=== PATIENT | male | born 1945 | race Caucasian/White ===

== ENCOUNTER 2023-05-12 10:37 | Outpatient (AMB) | payer MEDICARE, SELFPAY ==
--- NOTE | 2023-05-12 10:38 | A.OFFVIS_ITS ---
Intake Vital Signs 05/12/23 10:43 Weight 193 lb BP 127/76 Blood Pressure Location Rt brachial Position Sitting Pulse 55 Intake Visit Reasons: Inguinal hernia Intake Note: This patient was self-referred and presents for an assessment for left inguinal hernia. Patient c/o; reports left groin bulge, reports occasional pain/discomfort. Certified Residential Medication Aide Required: No Accompanied by: Self / Same As Patient Allergies sulfamethoxazole [From Bactrim] Allergy (Verified 05/12/23 10:44) Unknown trimethoprim [From Bactrim] Allergy (Verified 05/12/23 10:44) Unknown Medication List - Last Reconciled 05/12/23 by Buddy Gael MD alfuzosin ER 10 mg PO DAILY apixaban (Eliquis) 5 mg PO BID diltiazem HCl 120 mg PO DAILY flecainide 100 mg PO DAILY pravastatin 20 mg PO DAILY HPI Inguinal hernia HPI Details 77-year-old male referred for a left ing uinal hernia. He had noticed this reducible mass on his left groin for about 1-2 months now. He says that this is more prominent when he is active. 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 He describes some discomfort. He had hernia repair on the right side about 15 months ago. He has history of atrial fibrillation but had ablation about 2 years ago and he says he had been in sinus since then. He however says that he still remains on anticoagulation with Eliquis. 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 FORMERLY [facility], [facility] Medical History (Updated 05/12/23 @ 11:15 by Buddy Gale MD) Left inguinal hernia History of atrial fibrillation Surgical History (Updated 05/12/23 @ 11:14 by Buddy Gale MD) History of radiofrequency ablation (RFA) for complex left atrial arrhythmia Hx of surgical procedure History of hernia surgery Family History Father Prostate cancer Social History Alcohol intake: current Patient Tobacco Use Status: Never used Tobacco Review of Systems Const Denies chills and Denies fever(s) Card Denies chest pain, Denies dyspnea and Denies dyspnea on exertion Resp Denies cough, Denies dyspnea and Denies dyspnea on exertion GI Denies hematochezia and Denies change in bowel habits Denies hematuria and Denies difficulty urinating Musc Denies back pain and Denies limited range of motion Neuro Denies focal weakness and Denies convulsions Psych Denies depression and Denies mood swings Physical Exam Vital Signs: Last Vital Signs Pulse 55 05/12/23 10:43 BP 127/76 05/12/23 10:43 Const General: comfortable and no acute distress Orientation/consciousness: patient oriented x3 Neck Neck: Yes no lymphadenopathy Resp Auscultation: clear to auscultation bilaterally Cardio Rhythm: regular rhythm GI Other: Left inguinal hernia, easily reducible, more prominent with Valsalva Palpation (GI): Soft to palpation, nontender and no guarding Neuro General: patient oriented x3 Assessment & Plan Assessment & Plan (1) Left inguinal hernia: Code(s): K40.90 - Unilateral inguinal hernia, without obstruction or gangrene, not specified as recurrent Plan: He has a left inguinal hernia as described above. He wants this repaired. I had a long discussion with him about the technique of repair of this left inguinal hernia with mesh. I reviewed the risks including but not limited to bleeding, infections, injury to the vas deferens and testicle, recurrence, blood clots, stroke, as well as the benefits and alternatives. He wants to proceed. I also explained to him what to expect postoperatively. He remains on anticoagulation with Eliquis despite having ablation 2 years ago. He is to hold his Eliquis for 48 hours prior to the procedure. Coding Level of Care Code New Pt Level 3 (79993) Diagnoses Left inguinal hernia K40.90
[2023-05-12 10:43] VITALS: BP 127/76; PULSE 55
== END 2023-05-12 11:11 | disposition home or self-care (01) ==
PROVIDERS: PCP Pediatrics; Visit Provider Surgery
DX: K40.90 Unilateral inguinal hernia, without obstruction or gangrene, not specified as recurrent (principal)
CPT/HCPCS: 99203

== ENCOUNTER → 2023-05-12 10:37 | Outpatient (BNVA) | payer MEDICARE, SELFPAY | PROVIDERS: PCP Pediatrics; Visit Provider Surgery ==

== ENCOUNTER 2023-07-12 06:29 | Day surgery (SDC) | payer MEDICARE, SELFPAY ==
[2023-07-08 10:34] VITALS: BMI 24.1
[2023-07-12] VITALS (7 sets, daily range): BP systolic 109–128; BP diastolic 61–73; PULSE 56–65; RESP 16–18; TEMP 36.1–36.7; O2SAT 95–98
[2023-07-12] MEDS: Lactated Ringers 1,000 ML 100 ML IVCONT (06:47)
--- NOTE | 2023-07-12 08:06 | MHC.SHP ---
Pre-Procedural Eval Section A Date of Service: 07/12/23 Section B Chief Complaint: Unilateral inguinal hernia, without obstruction Details of Present Illness: has had a reducible left groin mass consistent with hernia Relevant Family History (Specify if Yes): No Relevant Social History: None Present Medications: see Short Stay Collaborative assessment Medical History: Significant History ( history of arrhythmia/ atrial fibrillation, underwent ablation in the past) History of Previous Operations: Relevant previous surgery/procedure and date(s) Allergies: Allergies Allergy/AdvReac Type Severity Reaction Status Date / Time sulfamethoxazole Allergy Unknown Verified 07/12/23 06:31 [From Bactrim] trimethoprim [From Bactrim] Allergy Unknown Verified 07/12/23 06:31 Review of Systems Sugical H&P ROS: Negative: Constitution, Cardiovascular, Respiratory, Neurological, Psychiatric, Hem-Onc, Allergic/Immunologic, Gastrointestinal, Genitourinary, Musculoskeletal, Integumentary, Endocrine and Eyes/Ears/Nose/Throat Exam Surgical H&P Exam: Normal: HEENT, Normal: Heart, Normal: Lungs, Normal: Extremities, Normal: Skin and Normal: Neurological and Significant Findings: Abdomen ( reducible left inguinal hernia) Plan Diagnosis/Plan: Unchanged I have reviewed the history and physical and performed a pertinent physical examination on my patient. No changes have occurred unless specified. Time Spent With Patient Time: Total time managing care of this patient today ____ minutes.
--- NOTE | 2023-07-12 08:20 | P.CONAN_ITS ---
Documented by User: Arcelia Tejeda NP 07/11/23 10:39 HPI - Anesthesia Eval Consult details Narrative: 77yo M for Left Hernia Repair Inguinal with mesh Afib with eliquis, s/p RFA Follows [facility] cardiology. Last office visit 01/2023 [facility] Active Problems Active Problems: All Active Problems (Updated 07/08/23 @ 10:34 by Jana Sumner RN) Left inguinal hernia (Acute) History of radiofrequency ablation (RFA) for complex left atrial arrhythmia (Acute) History of atrial fibrillation (Acute) Past Medical History Medical History Elevated cholesterol Left inguinal hernia History of atrial fibrillation Family History Family History Father Prostate cancer Surgical History Surgical History History of radiofrequency ablation (RFA) for complex left atrial arrhythmia History of hernia surgery Social History Social History Alcohol intake: current Patient Tobacco Use Status: Never used Tobacco Substance Use Frequency: Daily Are you DNR?: No Advance Directives: No Advance Directives Information Provided: Yes Nutrition Risks: No Nutritional Risk Meds Allergies Allergy/AdvReac Type Severity Reaction Status Date / Time sulfamethoxazole Allergy Unknown Verified 07/12/23 06:31 [From Bactrim] trimethoprim [From Bactrim] Allergy Unknown Verified 07/12/23 06:31 Home Medications Medication Instructions Recorded Confirmed Last Taken Type alfuzosin 10 mg tablet,extended 10 mg PO DAILY 05/12/23 07/08/23 Unknown History release 24 hr apixaban 5 mg tablet (Eliquis) 5 mg PO BID 05/12/23 07/08/23 Unknown History diltiazem HCl 120 mg 120 mg PO DAILY 05/12/23 07/08/23 07/12/23 History capsule,extended release 24 hr flecainide 100 mg tablet 100 mg PO DAILY 05/12/23 07/08/23 07/12/23 History pravastatin 20 mg tablet 20 mg PO DAILY 05/12/23 07/08/23 Unknown History Exam Exam Date and Time: July 11, 2023 0912 Height,Weight and Vital Signs: Height 6 ft 3 in Weight 87.543 kg Narrative Narrative: EKG 01/2023 SB @ 56 ECHO 06/2020 LA mildly dilated RS mildly dilated RV mildly dilated RV systolic function is low normal LV size is nml LV wall thickness is nml LV sysltolic function is low nml LVEF 50-55% No regional WMA Grade 1, mild DD with impaired LV relaxation Pt was in SB during study Negative Exercise stress 06/2020 Assessment and Plan Assessment Anesthesia Assessment: Chart Reviewed Documented by User: Tamra Matt DO 07/12/23 08:24 HPI - Anesthesia Eval Consult details Narrative: 77yo M for Left Hernia Repair Inguinal with mesh Afib with eliquis, s/p RFA. Follows [facility] cardiology. Last office visit 01/2023. Marijuana and ETOH use. [facility] Past Medical History Medical History Elevated cholesterol Left inguinal hernia History of atrial fibrillation Family History Family History Father Prostate cancer Family history of problems with anesthesia: No Surgical History Surgical History History of radiofrequency ablation (RFA) for complex left atrial arrhythmia History of hernia surgery History of Problems with Anesthesia: No Social History Social History Alcohol intake: current Patient Tobacco Use Status: Never used Tobacco Substance Use Frequency: Daily Are you DNR?: No Advance Directives: No Advance Directives Information Provided: Yes Nutrition Risks: No Nutritional Risk Meds Allergies Allergy/AdvReac Type Severity Reaction Status Date / Time sulfamethoxazole Allergy Unknown Verified 07/12/23 06:31 [From Bactrim] trimethoprim [From Bactrim] Allergy Unknown Verified 07/12/23 06:31 Home Medications Medication Instructions Recorded Confirmed Last Taken Type alfuzosin 10 mg tablet,extended 10 mg PO DAILY 05/12/23 07/08/23 Unknown History release 24 hr apixaban 5 mg tablet (Eliquis) 5 mg PO BID 05/12/23 07/08/23 Unknown History diltiazem HCl 120 mg 120 mg PO DAILY 05/12/23 07/08/23 07/12/23 History capsule,extended release 24 hr flecainide 100 mg tablet 100 mg PO DAILY 05/12/23 07/08/23 07/12/23 History pravastatin 20 mg tablet 20 mg PO DAILY 05/12/23 07/08/23 Unknown History Exam Exam Date and Time: July 12, 2023 0820 Height,Weight and Vital Signs: Height 6 ft 3 in Weight 87.543 kg Vital Signs Temperature 98.0 F 07/12/23 06:56 Pulse Rate 56 07/12/23 06:56 Respiratory Rate 18 07/12/23 06:56 Blood Pressure 128/73 07/12/23 06:56 Pulse Oximetry 98 07/12/23 06:56 Oxygen Delivery Method Room Air 07/12/23 06:56 Temperature 98.0 F 07/12/23 06:56 Pulse Rate 56 07/12/23 06:56 Respiratory Rate 18 07/12/23 06:56 Blood Pressure 128/73 07/12/23 06:56 Pulse Oximetry 98 07/12/23 06:56 Oxygen Delivery Method Room Air 07/12/23 06:56 Airway Mallampati Class: II TM Dist: >3cm Neck ROM: Full Loose/Missing/Broken Teeth: No Heart: S1S2 Lungs: CTAB Assessment and Plan Assessment Anesthesia Assessment: Anesthesia Plan Discussed and Chart Reviewed Final Anesthetic Review Family History of Problems with Anesthesia: No History of Problems with Anesthesia: No NPO: Yes ASA Class: II Final Preanesthetic Review: No Changes in Pt Med Stat, Meds/Allgs Chart Reviewed, Consent Obtained/Reviewed and Anes Risks/Benef Reviewed Patient Risk: Low Procedure Risk: Low Anesthetic Plan Anesthetic Plan: GA and Agree w/ Assess. and Plan Disposition: Standard PACU
--- NOTE | 2023-07-12 09:28 | P.OP_ITS ---
Operative Note Operative Note Date of Service: 07/12/23 Narrative: Preop diagnosis: Left inguinal hernia Postop diagnosis: Left inguinal hernia, indirect Procedure: Repair of a left inguinal hernia with mesh Surgeon: Buddy Gale MD anesthesiologist assistant certified: DREW Lorenz The patient is a 77-year-old male with a reducible mass on the left groin consistent with a left inguinal hernia. He understood the technique of repair with mesh. He was aware of the risks, benefits, and alternatives He was brought to the operating room. He was placed supine under general anesthesia via laryngeal mask airway. The left groin area had been prepped and draped in the usual sterile fashion. A surgical time-out was done. The patient received cefazolin 2 g IV preoperatively I infiltrated the planned line of incision with lidocaine 1%. I made a short incision on the skin along an imaginary line from the anterior superior iliac spine to the pubic ramus using blade 15. This was carried down through the full- thickness of the skin subcutaneous fat with extra cautery anti was able to see the external oblique aponeurosis and the external ring. I gently defined external ring using gauze. I made an incision on the axilla oblique but neurosis overlying this inguinal canal using a blade 15 and extended this inferomedially to connect with external ring using an open tipped pair of scissors. I bluntly dissected the underside of the aponeurosis to create space for the mesh. I then proceeded to identify the and its contents. I bluntly dissected the cord with my index finger until was able to pass a [place] drain around this. This [place] drain was used for retraction. I examined the cord. There was note of a very large sac that was intimately related to the rest of the cord contents. I was able to visualize the vas deferens and the accompanying vessels. I proceeded to gently separate the sac the rest of the cord contents, carefully protecting the vas deferens and its accompanying vessels. I continued to separate the large sac from the rest of the cord contents until was able to use this with the internal ring. I reinforced this internal ring with a large Prolene plug. The plug was secured to the vague edge of the inguinal ligament laterally and the internal oblique superiorly and medially using the inner leaves of the plug. I then reinforced the entire floor of the canal with a keyhole mesh. The tails of the mesh were passed around the cord at the level of the internal ring and were secured together with Prolene 2 sutures. I flattened the mesh. I secured the mesh to the shelving edge of the inguinal meant laterally, and the internal oblique superiorly medially as well as the pubic ramus inferomedially. I recreated. I observed for hemostasis. Once hemostasis was confirmed, I proceeded to then close the external oblique aponeurosis with a running 0 Polysorb 2-0 stitch to re-create the external ring. The subcutaneous layer was reapposed with Polysorb 3-0 interrupted sutures. Skin closure was achieved with S of 4-0 subcuticular running stitch. The incision was infiltrated with Marcaine 0.5% for postop analgesia. Dressings were applied. The procedure was completed The patient tolerated procedure well. There were no immediate complications. Initial and final counts of sponges and instruments were correct. Estimated blood loss was about 15 cc. The patient was extubated without difficulty and transferred to the recovery room with stable vital signs
[2023-07-12] MEDS: Acetaminophen 325 MG TABLET 650 MG PO (10:14)
[2023-07-12] MEDS: oxyCODONE HCl Immed Release 5 MG TABLET 10 MG PO (10:15)
== END 2023-07-12 11:11 | disposition home or self-care (01) ==
PROVIDERS: PCP Pediatrics; Visit Provider Surgery
PROC: (CPT 49505; principal; 2023-07-12 08:40)
DX: K40.90 Unilateral inguinal hernia, without obstruction or gangrene, not specified as recurrent (principal); E78.00 Pure hypercholesterolemia, unspecified; Z86.79 Personal history of other diseases of the circulatory system; Z79.01 Long term (current) use of anticoagulants; Z79.899 Other long term (current) drug therapy; Z88.2 Allergy status to sulfonamides; Z98.890 Other specified postprocedural states
CPT/HCPCS: 49505; C1781; J0690; J1100; J2405; J2704; J2795; J3010

== ENCOUNTER → 2023-07-12 06:29 | Outpatient (BNV) | payer MEDICARE, SELFPAY | PROVIDERS: PCP Pediatrics; Visit Provider Surgery | DX: K40.90 Unilateral inguinal hernia, without obstruction or gangrene, not specified as recurrent (principal) | CPT/HCPCS: 49505 ==

== ENCOUNTER 2023-07-25 10:57 | Outpatient (AMB) | payer MEDICARE, SELFPAY ==
--- NOTE | 2023-07-25 11:07 | A.OFFVIS_ITS ---
Intake Vital Signs 07/25/23 11:10 Height 6 ft 3 in Weight 200 lb 4 oz BMI 25.0 Respiration 18 Intake Visit Reasons: S/P LIH w/mesh Intake Note: Patient is seen in office for post op assessment post left inguinal hernia repair. Patient c/o: admits to minimal pain, denies any other concerns Sizer Hand Required: No Accompanied by: Self / Same As Patient Allergies sulfamethoxazole [From Bactrim] Allergy (Verified 07/25/23 11:11) Unknown trimethoprim [From Bactrim] Allergy (Verified 07/25/23 11:11) Unknown HPI S/P LIH w/mesh HPI Details He underwent repair of a left inguinal hernia mesh last 2022. He tolerated procedure well. Her currently denies significant complaints although he does admit that he had pain on the operative site for a few days. He said he does not take any pain medications anymore. [facility] Medical History Elevated cholesterol Left inguinal hernia (07/12/23) History of atrial fibrillation Surgical History History of radiofrequency ablation (RFA) for complex left atrial arrhythmia History of hernia surgery Family History Father Prostate cancer Alcohol intake: current Patient Tobacco Use Status: Never used Tobacco Review of Systems Const Denies chills and Denies fever(s) Card Denies chest pain, Denies dyspnea and Denies dyspnea on exertion Resp Denies cough, Denies dyspnea and Denies dyspnea on exertion GI Denies hematochezia and Denies change in bowel habits Denies hematuria and Denies difficulty urinating Musc Denies back pain and Denies limited range of motion Neuro Denies focal weakness and Denies convulsions Psych Denies depression and Denies mood swings Physical Exam Vital Signs: Last Vital Signs Resp 18 07/25/23 11:10 BMI result Body Mass Index 25.0 Const General: comfortable and no acute distress Resp Effort & Inspection: normal respiratory effort GI Other: Left inguinal hernia repair site is well healed, not infected, repair site intact Palpation (GI): Soft to palpation, not firm and nontender Assessment & Plan Assessment & Plan (1) Left inguinal hernia: Onset Date: 07/12/23 Comment: Dr. Buddy Gale Code(s): K40.90 - Unilateral inguinal hernia, without obstruction or gangrene, not specified as recurrent Plan: Status post repair with mesh. He is doing very well. His incision is well he aled. The repair is intact. I advised him to avoid any lifting more than 20 lb for at least 2 more weeks. He can follow up on a p.r.n. basis. Coding Level of Care Code Global (15170) Diagnoses Left inguinal hernia K40.90
[2023-07-25 11:10] VITALS: RESP 18; BMI 25.0
== END 2023-07-25 11:30 | disposition home or self-care (01) ==
PROVIDERS: PCP Pediatrics; Visit Provider Surgery
DX: K40.90 Unilateral inguinal hernia, without obstruction or gangrene, not specified as recurrent (principal)
CPT/HCPCS: 99024

== ENCOUNTER → 2023-07-25 10:57 | Outpatient (BNVA) | payer MEDICARE, SELFPAY | PROVIDERS: PCP Pediatrics; Visit Provider Surgery ==